=== PATIENT | female | born 1965 | race African-American/Black ===

== ENCOUNTER → 2025-05-26 | Day surgery (SDC) | payer OTHER ==
[2025-05-18 08:52] LABS: BASOPHILS % 0.3 % (0.0-1.0); EOSINOPHILS % 1.1 % (0.0-6.0); LYMPHOCYTES % 33.3 % (18.0-39.1); MONOCYTES % 6.2 % (4.4-11.3); NEUTROPHILS % 58.9 % (38.7-80.0); RED CELL DISTRIBUTION WIDTH 13.0 % (11.7-14.4)
[2025-05-18 09:24] LABS: EST GLOMERULAR FILTRATION RATE 101.0 ML/MIN (>=60)
[~2025-05-26] MED LIST: ACETAMINOPHEN 1000 MG/100 ML 100 ML IV ONE; CEFTRIAXONE 1 GM VIAL ONE; DEXAMETHASONE SOD PHOS INJ 4 MG/ML SDV ONE; FAMOTIDINE 20 MG/2 ML VIAL IV ONE; FENTANYL CITRATE/PF 100MCG/2 ML INJ ONE; GENTAMICIN 80MG/NS 100 ML 200 ML IV ONE; HYDROCHLOROTH12.5 MG; LIDOCAINE HCL 2% LOCAL INJ 5 ML SDV VIAL INJ ONE; MIDAZOLAM HCL 2 MG/2 ML VIAL ONE; ONDANSETRON HCL INJ 2MG/ML 2ML 2 MG/ML VIAL ONE; PROPOFOL IV EMULSION 10 MG/ML 20 ML VIAL ONE; SODIUM CHLORIDE 0.9% 1000ML 1,000 ML ONE; [UNRECOGNIZED DRUG - OTHER]; [UNRECOGNIZED DRUG - OTHER]
[2025-05-26 13:04] VITALS: TEMP 97.4
[2025-05-26] MEDS: PHENAZOPYRIDINE HCL 100 MG TAB ONE (13:30)
[2025-05-26 14:00] VITALS: BP 143/80; PULSE 56; RESP 18; O2SAT 98
== END | disposition home or self-care (01) ==
LOC: OR 09:28
PROVIDERS: ATTEND Urology
DX: N13.2 Hydronephrosis with renal and ureteral calculous obstruction (principal); T83.89XA Other specified complication of genitourinary prosthetic devices, implants and grafts, initial encounter; Z46.6 Encounter for fitting and adjustment of urinary device; N81.10 Cystocele, unspecified; N36.41 Hypermobility of urethra; N36.2 Urethral caruncle; N81.6 Rectocele; N95.2 Postmenopausal atrophic vaginitis; I10 Essential (primary) hypertension; Y83.8 Other surgical procedures as the cause of abnormal reaction of the patient, or of later complication, without mention of misadventure at the time of the procedure; Y92.009 Unspecified place in unspecified non-institutional (private) residence as the place of occurrence of the external cause; Z79.899 Other long term (current) drug therapy
CPT/HCPCS: 36415; 52356; 74018; 74420; 80048; 83970; 84550; 85025; 87086; 93005; C1758; C1769; C2617; J0131; J0696; J1100; J1308; J1580; J2003; J2250; J2405; J2704; J3010; J7030